=== PATIENT | male | born 1990 | race Hispanic/Latino ===

== ENCOUNTER 2017-11-13 16:07 | Emergency (ER) | payer SELFPAY ==
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
[2017-11-13] MEDS ORDERED: Adacel (T-DAP) 0.5 ML VIAL ONE (17:21)
[2017-11-13] MEDS ORDERED: Lidocaine 1% PF 5 ML VIAL ONE (17:21)
== END 2017-11-13 17:55 | disposition home or self-care (01) ==
LOC: ERS 16:07
DX: S01.01XA Laceration without foreign body of scalp, initial encounter (principal); F17.210 Nicotine dependence, cigarettes, uncomplicated; W20.8XXA Other cause of strike by thrown, projected or falling object, initial encounter; Y92.69 Other specified industrial and construction area as the place of occurrence of the external cause
CPT/HCPCS: 12002; 70450; 90471; 90715; J2001

== ENCOUNTER 2017-11-20 13:55 | Emergency (ER) | payer SELFPAY | END 2017-11-20 14:37 | disposition home or self-care (01) | LOC: ERS 13:55 | DX: S01.01XD Laceration without foreign body of scalp, subsequent encounter (principal); F17.210 Nicotine dependence, cigarettes, uncomplicated; Z71.6 Tobacco abuse counseling; X58.XXXD Exposure to other specified factors, subsequent encounter | CPT/HCPCS: 99406 ==